=== PATIENT | male | born 1970 | race Asian ===

== ENCOUNTER 2020-12-17 15:34 | Emergency (ER) | payer BC, OTHER ==
[~2020-12-17] VITALS: Ht 180.3 cm; Wt 86.2 kg
[2020-12-17] MEDS ORDERED: ACETAMINOPHEN/CODEINE#3 (300/30mg) TAB PO ONE (19:00)
[2020-12-17] MEDS ORDERED: ONDANSETRON ODT 4 MG TAB PO ONE (19:00)
[2020-12-17 20:00] VITALS: BP 138/75
== END 2020-12-17 20:39 | disposition home or self-care (01) ==
LOC: ER 15:34
DX: S62.308A Unspecified fracture of other metacarpal bone, initial encounter for closed fracture (principal); S63.502A Unspecified sprain of left wrist, initial encounter; S20.212A Contusion of left front wall of thorax, initial encounter; S62.307A Unspecified fracture of fifth metacarpal bone, left hand, initial encounter for closed fracture; Q24.8 Other specified congenital malformations of heart; X58.XXXA Exposure to other specified factors, initial encounter; Y93.89 Activity, other specified; Y92.89 Other specified places as the place of occurrence of the external cause; Y99.8 Other external cause status
CPT/HCPCS: 29125; 71250; 73090; 73130; 73200; 99285; Q0162